=== PATIENT | female | born 1985 | race Caucasian/White ===

== ENCOUNTER 2020-11-05 18:08 | Emergency (ER) | payer BC ==
[~2020-11-05] VITALS: Ht 165.1 cm; Wt 59.1 kg
[2020-11-05 18:24] VITALS: BP 129/79; Ht 165.1 cm; Wt 59.1 kg
[2020-11-05] MEDS ORDERED: DICLOFENAC SODI50 MG PO (18:52)
== END 2020-11-05 19:58 | disposition home or self-care (01) ==
LOC: D.ER 18:08
DX: M25.571 Pain in right ankle and joints of right foot (principal)